=== PATIENT | female | born 1980 | race African-American/Black ===

== ENCOUNTER → 2023-01-22 | Day surgery (SDC) | payer MEDICARE, MEDICAID ==
[~2023-01-22] MED LIST: LIDOCAINE HCL 1% 10 MG/ML 10ML VIAL ONE
== END | disposition home or self-care (01) ==
LOC: ANGIO 08:37
PROVIDERS: ATTEND Psychiatry & Neurology Neurology
DX: G35 Multiple sclerosis (principal); Z53.8 Procedure and treatment not carried out for other reasons
CPT/HCPCS: J3490